=== PATIENT | male | born 1945 | race Caucasian/White ===

== ENCOUNTER 2017-06-15 12:08 | Observation (INO) | payer OTHER ==
[~2017-06-15] VITALS: Ht 182.9 cm; Wt 126.5 kg
[2017-06-15] MEDS ORDERED: LORADAMED10 MG PO (12:25)
[2017-06-15] MEDS ORDERED: LIPITOR80 MG PO (12:25)
[2017-06-15] MEDS ORDERED: ASPIR-LOW81 MG PO (12:25)
[2017-06-15] MEDS ORDERED: CLOBETASOL EMOL15 GM TOP (12:26)
[2017-06-15] MEDS ORDERED: PLAVIX75 MG PO (12:26)
[2017-06-15] MEDS ORDERED: VITAMIN D2000 UNIT PO (12:26)
[2017-06-15] MEDS ORDERED: GLIPIZIDE5 MG PO (12:27)
[2017-06-15] MEDS ORDERED: VITAMIN B-12500 MCG PO (12:27)
[2017-06-15] MEDS ORDERED: LANTUS100 UNITS/ SUB-Q (12:28)
[2017-06-15] MEDS ORDERED: COZAAR100 MG PO (12:28)
[2017-06-15] MEDS ORDERED: SYNTHROID100 MCG PO (12:28)
[2017-06-15] MEDS ORDERED: K-TAB ER20 MEQ PO (12:29)
[2017-06-15] MEDS ORDERED: TOPROL XL25 MG PO (12:29)
[2017-06-15] MEDS ORDERED: GLUCOPHAGE1000 MG PO (12:29)
[2017-06-15] MEDS ORDERED: ROPINIROLE HCL1 MG PO (12:30)
[2017-06-15] MEDS ORDERED: TORSEMIDE20 MG PO (12:31)
[2017-06-15] MEDS ORDERED: ONGLYZA5 MG PO (12:31)
[2017-06-15] MEDS ORDERED: TRAZODONE HCL50 MG PO (12:32)
[2017-06-15] MEDS ORDERED: NITROSTAT0.4 MG SL (12:32)
[2017-06-15] MEDS ORDERED: METOLAZONE5 MG PO (12:33)
[2017-06-15] MEDS ORDERED: LEVOFLOXACIN750 MG PO (12:33)
[2017-06-15] MEDS ORDERED: MUPIROCIN22 GM TOP (12:33)
--- NOTE | 2017-06-15 16:37 | NUR ---
patient to the floor from ed. lisandra rn in room to assist with admission. and daughter in room. blanca from pharmacy in room to assist with admission medications. dr. garces and dr. toledo to the floor to assess patient.
--- NOTE | 2017-06-15 16:55 | NUR ---
PT NEW ADMIT. HELPED NURSE CHECK HIM IN. FRESH ICE WATER. TOOK VITALS.
--- NOTE | 2017-06-15 17:29 | NUR ---
DR. ESCALANTE IN ROOM TO SEE PATIENT. DR. NGUYEN UPDATING ON NEW ORDERS. FAMILY IN ROOM.
--- NOTE | 2017-06-15 17:32 | NUR ---
Medications reconciled using pharmacy records, patient med list and patient interview. Daughter, Althea, familiar with medications as well.
--- NOTE | 2017-06-15 17:46 | NUR ---
NEW ORDERS FROM DR. ESCALANTE. OKAY TO EAT UNTIL MIDNIGHT. PATIENT ORDERED DINNER. ORDERED FLUID STARTED. PATIENT TOLERATING WELL.
--- NOTE | 2017-06-15 17:53 | NUR ---
PATIENT ED ADMIT THIS EVENING. DR. ESCALANTE AND DR. NGUYEN TO FOLLOW PATIENT. PATIENT WILL HAVE SURGERY TOMORROW MORNING AT 0900. NPO AT MIDNIGHT. SCDS. CELLULITIES ON LOWER LEGS. MARKED. ZOSYN IV. ADA DIET WHILE ABLE TO EAT.
--- NOTE | 2017-06-15 18:32 | NUR ---
PT AWAKE IN BED PT STATED DID NOT NEED ANYTHING
--- NOTE | 2017-06-15 19:05 | NUR ---
SHIFT REPORT RECIEVED. PATIENT RESTING IN BED. FAMILY LEAVING FOR THE NIGHT, DAUGHTER LEFT HER NUMBER AND STATES SHE WILL BE BACK IN THE MORNING. PATIENT DENIES NEEDS. CALL LIGHT IN REACH.
--- NOTE | 2017-06-15 20:10 | NUR ---
EVENING MEDS GIVEN PER ORDER. PATIENT COMFORTABLE, DENIES NAUSEA OR PAIN. LUNGS ARE CLEAR. BOWEL SOUND ACTIVE, ABD ROUND AND SLIGHTLY TENDER IN THE LLQ AND AT THE UMBILICUS. PATIENT IS AAOX3. ABLE TO AMBULATE WITHOUT ASSISTANCE. IVF INFUSING, SITE WNL. RIGHT IN IS RED AND TENDER, OUTLINE BY DAYSHIFT. REDNESS HAS NOT MIGRATED AT THIS TIME. PATIENT REFUSES SCDS AT THIS TIME. CALL LIGHT IN REACH. DENIES FURTHER NEEDS.
--- NOTE | 2017-06-15 22:00 | NUR ---
IV ABX ADMINISTERED PER ORDERS. PATIENT RESTING IN BED. DENIES PAIN OR NAUSEA. DISCUSSED THE PLAN FOR THE NIGHT CARE AND THE MORNING PRIOR TO SURGERY. PATIENT VERBILIZES UNDERSTANDING. ALL QUESTIONS ANSWERED. DENIES NEED TO USE THE BATHROOM AT THIS TIME, STATED THAT THE ENERGY SPECIALIST TOOK HIM NOT LONG AGO. CALL LIGHT IN REACH.
--- NOTE | 2017-06-15 22:54 | NUR ---
PATIENT REQUESTED TO BE MOVED INTO THE RECLINER. HE REGULARLY SLEEPS IN A RECLINER AT HOME AND IS UNABLE TO GET COMFORTABLE IN BED. NASIR OCTOBER ASSISTED PATIENT.
--- NOTE | 2017-06-16 00:25 | NUR ---
PATIENT IS UNCOMFORTABLE WITH SITTING IN THE RECLINER. PATIENT UP TO THE BATHROOM. NEWER RECLINER PLACED IN ROOM. PATIENT APPEARS STEADY ON HIS FEET. PATIENT ASSISTED BACK TO THE RECLINER AND STATED IT FELT MORE COMFORTABLE. PATIENT DENIES PAIN OR NAUSEA. IVF INFUSING, SITE WNL. CALL LIGHT IN REACH. PATIENT NPO AT THIS TIME. WATER CUPS REMOVED.
--- NOTE | 2017-06-16 04:00 | NUR ---
PATIENT BACK IN BED ATTEMPTING TO REST. HE HAS BEEN UNABLE TO GET COMFROTABLE TONIGHT DUE TO REGULARLY HAVING A NICE RECLINER TO SLEEP IN. BUT HE CONTINUES TO DENY ANY PAIN. THE HERNIA IS STILL PRESENT AT THE UMBILICUS WITHOUT CHANGES FROM ADMISSION. THE REDDNESS ON HIS RIGHT LEG HAS NOT MIGRATED PAST DRAWN LINE.
--- NOTE | 2017-06-16 05:32 | NUR ---
PATIENT RESTED ON AND OFF THROUGHOUT THE SHIFT. USES CALL LIGHT APPROPRIATELY. AAOX3. SBA. IVF INFUSING, SITE WNL. SURGERY PREP COMPLETED.
--- NOTE | 2017-06-16 05:33 | NUR ---
RECEIVED TELEPHONE ORDER TO PLACE PATIENT ON LR @75. VERIFIED ORDER USING THE READBAKC METHOD.
--- NOTE | 2017-06-16 06:07 | NUR ---
PRE SURGICAL WIPE DOWN DONE. PATIENT UP TO THE RECLINER. IVF INFUSING. LAB IN ROOM FOR MORNING LABS. PATIENT DENIES PAIN OR NAUSEA. MORNING MEDS GIVEN PER ORDER WITH SIP OF WATER.
--- NOTE | 2017-06-16 06:48 | NUR ---
ASSISTED PT UP TO BATHROOM. OFFERS NO COMPLAINTS.
--- NOTE | 2017-06-16 07:29 | CONS ---
[facility] [address], [place] [address] Signed DATE OF CONSULTATION: 06/15/2017 CHIEF COMPLAINT: Periumbilical pain and swelling. HISTORY OF PRESENT ILLNESS: Taisha is a 71-year-old obese, diabetic gentleman, who is having trouble with lower extremity edema and some chronic venous stasis disease with what looked like some cellulitis. He had been working with his primary care provider adjusting his antibiotics and his diuretics. Apparently, he was also working with his teacher aide clerical. Unfortunately, got little dehydrated, constipated, and then he had to take some Dulcolax and some magnesium citrate and he was pushing pretty hard and he felt the swelling at the umbilicus double in size. He was having some pain there, so he ended up going to his primary care provider. In the office, probably 2/3rds of that was reduced but the last 1/3rd could not be reduced and it seemed a little tender. His primary care provider had called me in the middle of the day after my office was closed. Consequently, we asked that he go straight to the emergency room. In the emergency room, his white count is normal. He is a little tender at the umbilicus, but there are no local signs or symptoms of infection. He did not seem to have signs of obstruction, but we went ahead and performed a CT scan of the abdomen and pelvis given his significant comorbidities and the decision was to whether or not to keep him at the hospital. As expected, he has some incarcerated omentum into his moderate-sized umbilical hernia. Given that, then we decided we could admit him to the hospital and start him on some IV antibiotics. In the meantime, he has been doing fine. PAST MEDICAL HISTORY: Umbilical hernia, hypertension, diabetes, COPD, brain aneurysm, and obesity. PAST SURGICAL HISTORY: Includes hemorrhoids and angiogram for a coil for his brain aneurysm, later followed by a craniotomy with clipping of the aneurysm and then cardiac stent. SOCIAL HISTORY: Smoked up to two packs a day, but quit in 1998. He does not drink. He is now . He has 3 children. He lives in a house over in [place] and continues to drive. He is a retired printing press operator apprentice. He prefers the [facility] in [place]. Dr. Gustavo Deleon is primary care provider. Dr. Tuckre is his teacher aide clerical in [place]. Phuong Nunez is his daughter at [phone] and [phone]. FAMILY HISTORY: Dad had some type of cancer, mom had Alzheimer's. REVIEW OF SYSTEMS: Taisha had 10 systems reviewed. He is very knowledgeable, very cooperative, really nothing new to add. Electronically Signed By: BELINDA ESCALANTE MD 06/16/17 0729 PATIENT NAME: TAISHA LINARES CONSULTATION DATE OF : 47 PHYSICIAN: BELINDA ESCALANTE MD REPORT #: [id number] REPORT IS CONFIDENTIAL AND NOT TO BE RELEASED WITHOUT AUTHORIZATION [address] [address] Signed ALLERGIES: None. MEDICATIONS: Bactroban ointment, levofloxacin, torsemide, metoprolol, metolazone, aspirin, clobetasol, atorvastatin, loratadine, vitamin D3, Plavix, vitamin B12, glipizide, Lantus, levothyroxine, losartan, potassium chloride, ropinirole, trazodone, saxagliptin, and nitroglycerin p.r.n. PHYSICAL EXAMINATION: VITAL SIGNS: Blood pressure is 132/81, his heart rate 72, respiratory rate 20, temperature is 98.0, he is 96% on room air. He is 6 feet tall and 126 kg. GENERAL: Taisha is a 71-year-old gentleman with his entire family in the room, including the daughter and his [id number]-[id number]-ruy and others. He does not appear systemically ill or toxic. He is very cooperative. LUNGS: His lungs are clear to auscultation bilaterally. HEART: Regular rate and rhythm. ABDOMEN: Obese, but soft and nontender. He certainly has an incarcerated umbilical hernia with chronically thinned and discolored skin over that area. No local signs or symptoms of infection I can see currently. LABORATORY DATA: His white blood count 7.8, hemoglobin 10, neutrophils 78. Potassium 3.3, CO2 34, BUN 27, creatinine 1.26, glucose 190. His urinalysis negative. Calcium 10.3. Liver function tests negative. Lipase 54. RADIOGRAPHIC STUDIES: CT scan of abdomen and pelvis is reviewed and sure enough he has an umbilical hernia with some incarcerated omentum. ASSESSMENT AND PLAN: Taisha is a 71-year-old gentleman, who presents with his incarcerated umbilical hernia and probably some chronic cellulitis with chronic venous stasis disease in his lower extremities, the right is little worse than the left. He has been on Levaquin recently. We are going to go ahead and switch him over to IV Zosyn for now. I think he is more than safe to go through the night for some IV hydration and correction of his potassium, and we will plan on doing surgery tomorrow morning, I think he will be fine, given the umbilical hernia the Plavix and aspirin should not really bother us. I did describe with Taisha and his family the nature of an umbilical hernia. We reviewed primary suture repair versus a mesh repair. We also reviewed the expected intraop and postop course. They understand there is risk including but not limited to bleeding, infection, scarring, change in contour of the skin, damage to bowel, infection of mesh requiring removal, recurrent hernias and chronic pain. They have expressed understanding and wished to proceed. In the meantime, we will have our Internal Medicine Service see him as well. Electronically Signed By: BELINDA ESCALANTE MD 06/16/17 0729 PATIENT NAME: TAISHA LINARES CONSULTATION DATE OF : 47 PHYSICIAN: BELINDA ESCALANTE MD REPORT #: [id number] REPORT IS CONFIDENTIAL AND NOT TO BE RELEASED WITHOUT AUTHORIZATION [address] [address] Signed MD MARGE uMnson/LELA /[id number] cc: MD Gustavo Munson MD Electronically Signed By: BELINDA ESCALANTE MD 06/16/17 0729 PATIENT NAME: TAISHA LINARES CONSULTATION DATE OF : 47 PHYSICIAN: BELINDA ESCALANTE MD REPORT #: [id number] REPORT IS CONFIDENTIAL AND NOT TO BE RELEASED WITHOUT AUTHORIZATION
--- NOTE | 2017-06-16 07:31 | NUR ---
RECIEVED BEDSIDE REPORT FROM GUILHERME MCFARLAND. PT AWAKE IN CHAIR. PT STATES HE IS COMFORTABLE AT THIS TIME.
--- NOTE | 2017-06-16 08:29 | EKG ---
[facility] [address] [facility] [place] [address] Signed Atrial fibrillation with premature ventricular or aberrantly conducted complexes Abnormal ECG No previous ECGs available Confirmed by WILLIAM NGUYEN MD ([id number]) on 06/16/2017 8:28:46 AM Electronically Signed By: WILLIAM NGUYEN MD 06/16/17 0829 PATIENT NAME: TAISHA LINARES Electrocardiogram DATE OF : 47 PHYSICIAN: WILLIAM NGUYEN MD REPORT #: [id number] REPORT IS CONFIDENTIAL AND NOT TO BE RELEASED WITHOUT AUTHORIZATION
--- NOTE | 2017-06-16 08:32 | NUR ---
SPOKE WITH ANESTHESIA PROVIDER, ADVISED TO HOLD POTASSIUM UNTIL AFTER SURGERY. ABX NOT FINISHED.
--- NOTE | 2017-06-16 08:49 | NUR ---
PTOFF THE FLOOR FOR SURGERY.
--- NOTE | 2017-06-16 10:31 | NUR ---
06/16/17 1031 Ashli More 0948 PT ARRIVED TO PACU, RESP EVEN AND UNLABORED. PT RESPONDING TO STUMULI. 0950 PT COUGHED UP SMALL AMOUNT OF GREEN SPUTUM 0956 PT O2 100%, O2 MASK REMOVED. 0959 O2 DECREASED TO 90%, NC PLACED AT 6L PLACED. 1001 PT REPORTING PAIN 04/03, MEDICAITON GIVEN PER EMAR. 1006 O2 REDUCED TO 4L 1020 PT REPORTING NAUSEA, MEDICAITON GIVEN PER EMAR. 1027 O2 REDUCED TO 2L
--- NOTE | 2017-06-16 11:14 | NUR ---
PT ARRIVED BACK FROM SURGERY AT 1105. PT IS AWAKE AND ALERT, SLIGHTLY DROWSY. NAUSEA IS CONTROLLED AT THIS TIME. PT REPORTS NO PAIN. DRESSING C/D/I. PULSES INTACT. PACU REPORTS IV FLUSHES WELL, BUT IS GETTING DIFFICULT.
--- NOTE | 2017-06-16 14:51 | NUR ---
TOOK BLOOD SUGAR CHECK. NOW GETTING HIS DINNER ORDERED.
--- NOTE | 2017-06-16 18:17 | NUR ---
PT TO SURGERY THIS AM, HERNIA REPAIR WITHOUT MESH. PT TOLERATED PROCEDURE WELL. ICE TO ABD PRN PAIN X24 HRS. DRESSING C/D/I. SCD TO LLE ONLY TOLERATED. REDNESS AND WARMTH TO LOWER LEGS, RECEDING FROM OUTLINES. PT UP TO CHAIR FOR MEALS, RESTING IN BED MOST OF DAY. D5 AT 100ML/HR. POTASSIUM RIDER THIS SHIFT, EXTENDED INFUSION ABX THIS SHIFT. PRN PAIN MEDS X2.
--- NOTE | 2017-06-16 19:10 | NUR ---
SHIFT REPORT RECIEVED. PATIENT RESTING IN RECLINER. REPORTS GOOD PAIN CONTROL AT THIS TIME. CALL LIGHT IN REACH.
--- NOTE | 2017-06-16 19:43 | NUR ---
ROUNDED CHARGE. PATIENT IS RESTING IN RECLINER. PATIENT DENIES ANY PAIN OR NAUSEA AT THIS TIME. NO COMMENTS QUESTIONS OR CONCERNS. CALL LIGHT IN REACH.
--- NOTE | 2017-06-16 20:56 | NUR ---
EVENING MEDS GIVEN. PATIENT RESTING IN BED. AAOX3. REPORTS PAIN AT 5/10 IN ABD, ICE PACK APPLIED. PATIENT DENIES NEED FOR PAIN MED AT THIS TIME. LUNGS CLEAR. ABD IS ROUND, AND TENDER NEAR INCISION SITE. DRESSING C/D/I. SCD ON LEFT LEG. REDNESS ON RIGHT LEG, APPEARS IMPROVED FROM PREVIOUS SHIFT. REDNESS HAS RECEDED FROM LINE DRAWN ON ADMISSION. IVF INFUSING, SITE WNL. PATIENT THINKS HE HAS PASSED A SMALL AMOUNT OF GAS BUT IS UNSURE. PULSE OX IN PLACE, 97% ON RA.
--- NOTE | 2017-06-16 22:45 | NUR ---
PATIENT REPORTED 7/10 PAIN AFTER GETTING UP TO THE BATHROOM AND THEN RESTING IN BED FOR A FEW MINS. PATIENT HAS ICE PACK IN PLACE. PRN ORAL PAIN MEDS GIVEN. O2 SAT 90% ON RA WHILE SLEEPING. PATIENT REQUESTED O2 VIA NC. 1L NC PLACED FOR PATIENT COMFORT. CALL LIGHT IN REACH.
--- NOTE | 2017-06-17 00:39 | NUR ---
PATIENT RESTING IN BED. PULSE OX 98% ON 1L NC. PATIENT EYES CLOSED. BREATHING NONLABORED. HOB ELEVATED. CALL LIGHT IN REACH.
--- NOTE | 2017-06-17 01:05 | NUR ---
PATIENT REPORTS PAIN IS 5/10. PRN PAIN MEDS GIVEN PER ORDER. PATIENT RESTING IN RECLINER. 1L NC ON FOR COMFORT, PULSE OX 02 96%. CALL LIGHT IN REACH.
--- NOTE | 2017-06-17 02:44 | NUR ---
PATIENT REPORTS GOOD PAIN CONTROL BUT IS UNABLE TO SLEEP MUCH. PATIENT HAS TRIED TO SLEEP IN THE RECLINER AND THE BED. UNABLE TO FIND A COMFORTABLE POSITION. PATIENT DENIES ANY NEEDS. READJUSTED PILLOWS IN RECLINER. CALL LIGHT IN REACH.
--- NOTE | 2017-06-17 05:00 | NUR ---
GUILHERME TAYLOR ASSISTED PATIENT TO THE BATHROOM. PATIENT BACK IN BED. CALL LIGHT IN REACH.
--- NOTE | 2017-06-17 05:38 | NUR ---
PATIENT RESTED ON AND OFF THROUGHOUT THE NIGHT, MOVING BETWEEN THE BED AND THE RECLINER. PAIN WELL CONTROLLED WITH ICE PACK AND ORAL PRN PAIN MEDS X2. SBA TO THE BATHROOM. DRESSING C/D/I. DUE TO BE REMOVED THIS AM. REDNESS ON RIGHT LEG IMPROVED FROM PREVIOUS NIGHT. SCD ON LEFT LEG. IVF INFUSING, SITE WNL. PULSE OX IN PLACE. 1L NC WHILE SLEEPING PER PATIENT REQUEST. PATIENT AAOX3.
--- NOTE | 2017-06-17 06:13 | NUR ---
PATIENT RESTING IN BED. STATES HE FEELS LIKE HE MIGHT NEED TO HAVE A BOWEL MOVEMENT SOON. OFFERED PATIENT TO AMBULATE IN THE HALLWAY. HE WOULD LIKE TO DO THAT THIS MORNING BUT WOULD LIKE TO REST A LITTLE MORE RIGHT NOW. HE WILL LET RN KNOW WHEN HE IS READY TO AMBULATE.
--- NOTE | 2017-06-17 07:45 | NUR ---
BEDSIDE REPORT RECEIVED FROM BRUNA. PATIENT WAS UP TO BATHROOM. ASSISTED BACK TO THE CHAIR. IV SITE PATENT AND FLUID INFUSING UMBILICAL DRESSING DRY/INTACT. PATIENT REPORT INTERMITTENT PAIN AT INCISION SITE.
--- NOTE | 2017-06-17 09:40 | NUR ---
PATIENT SITTING IN THE CHAIR, REPORTS 4/10 AT THE INCISION SITE. PATIENT WAS MEDICATED. SHIFT ASSESSMENT DONE. MORNING MEDS ADMINISTERED. RESTING IN THE CHAIR AT THIS TIME. NO APPARENT DISTRESS NOTED.
--- NOTE | 2017-06-17 10:06 | NUR ---
DR ESCALANTE IN ROOM TO RE-EVALUATE PATIENT. DISCUSSING PLAN OF CARE WITH PATIENT AND FAMILY.
[2017-06-17] MEDS ORDERED: NORCO 5-325 TA1 EACH PO (10:32)
[2017-06-17] MEDS ORDERED: MIRALAX17 GM PO (10:32)
[2017-06-17] MEDS ORDERED: BENEFIBER1 EAC2 PO (10:32)
--- NOTE | 2017-06-19 08:26 | DS ---
[facility] [address] [place], [place] [address] Signed ADMISSION DATE: 06/15/2017 DISCHARGE DATE: 06/17/2017 FINAL DIAGNOSIS: Strangulated umbilical hernia. PROCEDURES: 1. Primary umbilical hernia repair without mesh. 2. CT scan of abdomen and pelvis. HISTORY OF PRESENT ILLNESS: Taisha is a 71-year-old, debilitated gentleman, who was using some diuretics to try to get some edema off his legs and also some antibiotics for some cellulitis in his right leg. Unfortunately, he got little dehydrated and constipated and then he started to push at the toilet. He doubled the size of his umbilical hernia and it was quite painful. He ended up at his primary care provider's office and then went over to the emergency room as well. White count was normal, but the CT scan showed his herniated fat and it was not reducible. It was tender in that area as well. Therefore, I was asked to admit him as a general surgeon on-call. HOSPITAL COURSE: I met with Taisha that evening and his family. He did not have any local signs or symptoms of infection. We knew this was going to be incarcerated fat based on exam and his CT scan. We kept him overnight, put him on Zosyn and we had our Internal Medicine Service see him to help review and optimize his medical conditions. Also, he was dehydrated and need some IV fluids before any anesthetic. We took him to the operating room then the next day and he did quite well. We found his herniated fat, which we excised and passed off the field. The bowel underneath was fine. However, he had dmwpb-nr-[id number] changes with some areas of hemorrhage from trying to reduce the hernia, but also he had lot of induration to the surrounding fat not noted on the outside of the muscle, but on the preperitoneal fat as well. Plus, he has a source of infection in his leg, so we decided to withhold any mesh at this time and was closed primarily with [id number] Prolene sutures. After surgery, he did fine, but he was little dizzy and unsteady on his feet, so we kept him overnight. This morning, he is feeling much better. He still low distended from his constipation, but overall, he is doing fine and he has good support from his family. Given his progress, I am going to allow him to be discharged to home. DISCHARGE PLANS AND MEDICATIONS: Taisha is going to be discharged to home with a prescription for [facility] 5/325, 1 to 2 tablets p.o. q.4 to 6 hours p.r.n. pain. We will dispense 50 tablets with no refills. He will resume his chronic medications including his Levaquin. He has 5 or 6 days of Levaquin remaining for his leg. However, we will hold the aspirin and Plavix for 5 days. Electronically Signed By: BELINDA MAN MD 06/19/17 0826 PATIENT NAME: TAISHA LINARES DISCHARGE SUMMARY DATE OF : 47 PHYSICIAN: BELINDA AMN MD REPORT #: [id number] REPORT IS CONFIDENTIAL AND NOT TO BE RELEASED WITHOUT AUTHORIZATION [address] [address] Signed I also wrote down MiraLAX 17 g p.o. b.i.d. and 8 to 12 ounces of liquid, which he can purchase [id number] and he needs take that at least for the next week or so until his intestine settled down and he can also use Benefiber 1 tablespoon p.o. b.i.d. and 8 to 12 ounce liquid [id number] as well. We are going to leave this dressing open to air and he can shower and bathe as usual. He can walk up and down stairs, and perform his activities of daily living. He should not lift over 20 pounds. We will have him back in the office in a week or so for followup. He and his family have expressed understanding and agreed to above plan. Belinda Man MD ALB/MODL /[id number] cc: Dr. Poli Deleon MD Electronically Signed By: BELINDA MAN MD 06/19/17 0826 PATIENT NAME: TAISHA LINARES DISCHARGE SUMMARY DATE OF : 47 PHYSICIAN: BELINDA MAN MD REPORT #: [id number] REPORT IS CONFIDENTIAL AND NOT TO BE RELEASED WITHOUT AUTHORIZATION
--- NOTE | 2017-06-21 05:38 | OR ---
[facility] [address], [place] [address] Signed DATE OF OPERATION: 06/16/2017 SURGEON: Belinda Escalante MD PREOPERATIVE DIAGNOSIS: Incarcerated umbilical hernia (2 cm). POSTOPERATIVE DIAGNOSIS: Strangulated umbilical hernia (2 cm). PROCEDURE: Primary umbilical herniorrhaphy without mesh. ESTIMATED BLOOD LOSS: None. INDICATIONS: Taisha is a 71-year-old, obese, diabetic gentleman, who also has anemia as well as COPD and chronic bilateral lower extremity venous stasis disease with what looks like chronic cellulitis in his right leg. He had been taking some extra diuretics to try to diurese off some of the fluid from his legs and ended up dehydrated and constipated. He found himself pushing much harder at the toilet than usual. He said the umbilical hernia that he has had for several years doubled in size. It was painful, so he ended up going to his primary care provider. About 1/2 to 2/3 of that hernia was reduced, but a portion of it could not be reduced. It was batch still operator and so he was sent directly over to the emergency room for evaluation. In the emergency room, his white count was normal and CT scan showed some incarcerated fat in the hernia with some inflammatory changes around it suggesting it could be strangulated as well. Consequently, he was admitted to me as a general surgeon on-call. We switched him from his outpatient Levaquin over to some Zosyn IV here in the hospital. I did have our medical service see him as well. I met with Taisha and his family here in the hospital. I explained to Taisha, I thought we had plenty of time to hydrate him and settle out his medical issues and we will do a surgery first thing in the morning. I explained to Taisha and his family the nature of an umbilical hernia as well as the difference between a primary suture repair and a mesh repair. We also reviewed the expected intraop and postop course. There is risk of surgery including, but not limited to bleeding, infection, scarring, change in contour of the skin as well as infection of the mesh requiring removal, recurrent hernias and chronic pain. In addition, we have to have him off his aspirin and Plavix for a few days and that places him at some increased risk given his cardiac stent and a previous brain aneurysm. He and his family had expressed understanding and wished to proceed. PROCEDURE NOTE: Taisha was brought down to our operating room where we placed him in a supine position under general anesthesia. He was on Plavix and aspirin, so we withheld his heparin. Electronically Signed By: BELINDA ESCALANTE MD 06/21/17 0538 PATIENT NAME: TAISHA LINARES OPERATIVE REPORT DATE OF : 47 PHYSICIAN: BELINDA ESCALANTE MD REPORT #: [id number] REPORT IS CONFIDENTIAL AND NOT TO BE RELEASED WITHOUT AUTHORIZATION [address] [address] Signed There was enough skin changes to his right leg, that we did not place an SCD on the right leg. We went ahead and placed one on the left. We did not use a Shah catheter today. He was then prepped and draped in the usual sterile fashion. Of course, he was on his preoperative Zosyn. Even after pharmacologic paralysis, we could not reduce his hernia. We went ahead and made a standard transverse infraumbilical incision and carried it down through the tissues bluntly with the cautery. We found the tissue to be very indurated and very edematous. I had to open the inferior portion of the hernia sac from the fascia up to the level of the umbilicus and then divided from the fascial edge with the help of a cautery. He had a large ball of fat incarcerated in the hernia sac, 3/4 the size of a golf ball. There was significant induration to that hernia sac, and inside the hernia sac, he had multiple areas of hemorrhage and inflammatory changes. The entire ball of fat simply rotated out of the fascial defect and underneath was a piece of small intestine. There was no damage or concern with the small intestine whatsoever. After this, we elevated the edges of the hernia throughout the fascial defect with our Bill clamps, and even underneath, he had circumferential inflammation and induration to the preperitoneal fat. However, there was no adhesion within the intestine or omentum to the area. Given those local findings plus the chronic cellulitis in his right lower extremity, we did not feel it was valverde to place a piece of mesh at this time. As always, the concern it would become infected. We went ahead and brought his fascial defect back together transversely with interrupted #1 [id number] Prolene sutures. We also used several simple #1 Prolene sutures in between to reapproximate the fascial edges. After this, local anesthetic was injected in the abdominal wound. The wound was irrigated and suctioned out until clear. We had gone through the wound several times to make sure all hemostasis was excellent with our cautery. The indurated fat was brought together back to the midline with several simple interrupted 3-0 Monocryl sutures along with our umbilical skin. The dermis was then reapproximated with interrupted 3-0 subcuticular Monocryl sutures. After this, dry gauze and tape was applied. Taisha was awakened from his anesthesia, extubated in the OR, and taken to recovery room in stable condition. Belinda Escalante MD ALB/MODL /[id number] Electronically Signed By: BELINDA ESCALANTE MD 06/21/17 0538 PATIENT NAME: TAISHA LINARES OPERATIVE REPORT DATE OF : 47 PHYSICIAN: BELINDA ESCALANTE MD REPORT #: [id number] REPORT IS CONFIDENTIAL AND NOT TO BE RELEASED WITHOUT AUTHORIZATION [address] [address] Signed cc: MD Clau Jimenez MD Electronically Signed By: BELINDA ESCALANTE MD 06/21/17 0538 PATIENT NAME: TAISHA LINARES OPERATIVE REPORT DATE OF : 47 PHYSICIAN: BELINDA ESCALANTE MD REPORT #: [id number] REPORT IS CONFIDENTIAL AND NOT TO BE RELEASED WITHOUT AUTHORIZATION
== END 2017-06-17 11:45 | disposition home or self-care (01) ==
LOC: ED 12:08 → MS 12:10 → ED 15:53 → MS 15:53
PROVIDERS: ADMIT Colon & Rectal Surgery
PROC: 0WQF0ZZ Repair Abdominal Wall, Open Approach (ICD-10-PCS; principal; 2017-06-16 09:00)
DX: K42.0 Umbilical hernia with obstruction, without gangrene (principal); J44.9 Chronic obstructive pulmonary disease, unspecified; R60.0 Localized edema; I87.8 Other specified disorders of veins; R53.81 Other malaise; L03.115 Cellulitis of right lower limb; D64.9 Anemia, unspecified; E86.0 Dehydration; K59.00 Constipation, unspecified; R42 Dizziness and giddiness; I12.9 Hypertensive chronic kidney disease with stage 1 through stage 4 chronic kidney disease, or unspecified chronic kidney disease; E11.22 Type 2 diabetes mellitus with diabetic chronic kidney disease; N18.9 Chronic kidney disease, unspecified; G47.30 Sleep apnea, unspecified; R26.81 Unsteadiness on feet; E66.01 Morbid (severe) obesity due to excess calories; E87.6 Hypokalemia; Z79.02 Long term (current) use of antithrombotics/antiplatelets; Z79.82 Long term (current) use of aspirin; Z57.39 Occupational exposure to other air contaminants; Z79.4 Long term (current) use of insulin; Z79.899 Other long term (current) drug therapy; Z68.37 Body mass index [BMI] 37.0-37.9, adult; Z87.891 Personal history of nicotine dependence; Z95.5 Presence of coronary angioplasty implant and graft
CPT/HCPCS: 00750; 36415; 74177; 80048; 80053; 81001; 83605; 83690; 83735; 84100; 85025; 93005; 93010; 94640; 94762; 96366; 96367; 96374; 96375; 96376; 99285; G0378; J1170; J2405; J2543; J2704; J3010; J3480; J7060; J7120; Q9967

== ENCOUNTER 2017-11-29 16:01 | Inpatient (IN) | payer MEDICARE, OTHER ==
[~2017-11-29] VITALS: Ht 190.5 cm; Wt 134.3 kg
[~2017-11-29 16:01] MED LIST: ASPIR-LOW81 MG PO; BENEFIBER1 EAC2 PO; CLOBETASOL EMOL15 GM TOP; COZAAR100 MG PO; GLIPIZIDE5 MG PO; GLUCOPHAGE1000 MG PO; K-TAB ER20 MEQ PO; LANTUS100 UNITS/ SUB-Q; LEVOFLOXACIN750 MG PO; LIPITOR80 MG PO; LORADAMED10 MG PO; METOLAZONE5 MG PO; MIRALAX17 GM PO; MUPIROCIN22 GM TOP; NITROSTAT0.4 MG SL; NORCO 5-325 TA1 EACH PO; ONGLYZA5 MG PO; PLAVIX75 MG PO; ROPINIROLE HCL1 MG PO; SYNTHROID100 MCG PO; TOPROL XL25 MG PO; TORSEMIDE20 MG PO; TRAZODONE HCL50 MG PO; VITAMIN B-121000 MCG PO; VITAMIN D2000 UNIT PO
[2017-11-29] MEDS ORDERED: ASPIR 8181 MG PO (16:29)
[2017-11-29] MEDS ORDERED: MUCINEX600 MG PO (16:35)
--- NOTE | 2017-11-29 20:32 | EKG ---
[facility] [address] [facility] [place] [address] Signed Atrial fibrillation with premature ventricular or aberrantly conducted complexes Rightward axis Low voltage QRS Abnormal ECG No previous ECGs available Confirmed by WILLIAM NGUYEN MD ([id number]) on 11/29/2017 8:32:13 PM Electronically Signed By: WILLIAM NGUYEN MD 11/29/172031 PATIENT NAME: MILAGROSTAISHA BADILLO Electrocardiogram DATE OF : 47 PHYSICIAN: WILLIAM NGUYEN MD REPORT #: [id number] REPORT IS CONFIDENTIAL AND NOT TO BE RELEASED WITHOUT AUTHORIZATION
--- NOTE | 2017-11-29 21:03 | NUR ---
PLACED CALL TO MD PER PATIENTS REQUEST. NEW VERBAL ORDER RECEIVED. VERIFIED VERBAL ORDER USING THE READBACK METHOD.
--- NOTE | 2017-11-29 21:57 | NUR ---
PATIENT ASSESMENT COMPLETED. PATIENT DENIES ANY PAIN. PATIENTS EVENING MEDICATIONS GIVEN PER ORDER. PATIENTS BILAT LOWER LEGS HAVE EDEMA. PATIENTS ABD IS FIRM AND PATIENTS STATES THAT IT IS NOT NORMAL. PATIENTS PEDAL PULSES NOT EASY TO PALPATE. DOPPLER USED AND CASTLE MADE ON FEET FOR PULSES. PATIENT IS ON RA. BREATHING IS SHALLOW. PATIENT IS ON TELE #3, HR 83, IRREGULAR RHYTHM AND IRREGULAR HEART SOUNDS. PATIENT IS SL AND IV FLUSHES WELL. PATIENT EDUCATED ON THE USE OF THE CALL LIGHT. NO FURTHER NEEDS NOTED. CALL LIGHT IN REACH.
--- NOTE | 2017-11-29 22:46 | NUR ---
PATIENT ASSISTED TO STAND AT THE BEDSIDE. PATIENT IS STEADY ON HIS FEET. PATIENT WAS ABLE TO VOID. PATIENT IS BACK IN BED RESTING. PATIENT DENIES ANY FURTHER NEEDS CALL LIGHT IN REACH.
--- NOTE | 2017-11-30 01:04 | NUR ---
PATIENT COMPLAINS OF DISCOMFORT. PATIENT GIVEN PRN TYLENOL PER REQUEST. PATIENT REPOSITIONED IN BED. NO FURTHER NEEDS NOTED. CALL LIGHT IN REACH.
--- NOTE | 2017-11-30 01:31 | NUR ---
PATIENT ASSISTED TO THE RESTROOM A SBA. PATIENT WAS ABLE TO VOID. PATIENT IS BACK IN BED RESTING. PATIENT DENIES ANY FURTHER NEEDS AT THIS TIME. CALL LIGHT IN REACH.
--- NOTE | 2017-11-30 03:50 | NUR ---
PATIENT IS RESTING IN BED WITH EYES CLOSED. RR 17. CALL LIGHT IN REACH.
--- NOTE | 2017-11-30 05:08 | NUR ---
PATIENT STRUGGLED TO REST SINCE ARRIVING TO THE FLOOR. PATEINT IS ON AN ADA DIET. PATIENT ATE A LUNCH BOX UPON ARRIVING TO THE FLOOR. NO NAUSEA NOTED. PATIENT IS ON RA. PATIENT IS SL AND IV FLUSHES WELL. PATIEN IS ON TELE #3, IRREGULAR RHYTHM, HR IN THE 80'S. PATIENT IS A SBA. PATIENT HAS EDEMA TO BILAT LOWER EXT. PATIENT IS AAOX3 AND USES CALL LIGHT APPROPRIATELY.
--- NOTE | 2017-11-30 05:11 | NUR ---
PATIENT REPOSITIONED IN BED. RECORDS SECTION SUPERVISOR IN THE ROOM TO TAKE VITALS AND ASSISTED PATIENT TO THE RESTROOM. PATIENT DENIES ANY PAIN AT THIS TIME. NO NEEDS NOTED. CALL LIGHT IN REACH.
--- NOTE | 2017-11-30 07:46 | NUR ---
BEDSIDE REPORT RECEIVED FROM CAROLYN VANEGAS. PATIENT SITTING UP IN BED AND THEN TRANSITIONED TO SITTING AT EDGE OF BED. STUDENT NURSE GETTING FSBS NOW. DAUGHTER AT BEDSIDE. PATIENT IN GOOD SPIRITS. WHITE BOARD UPDATED.
--- NOTE | 2017-11-30 08:05 | NUR ---
STUDENT NURSE IN ROOM.
--- NOTE | 2017-11-30 09:49 | NUR ---
PATIENT SITTING ON SIDE OF BED. RN IN ROOM. FAMILY MEMBER IN ROOM. STUDENT NURSE AND INSTRUCTOR IN ROOM.
[2017-11-30] MEDS ORDERED: TYLENOL EXTRA500 MG PO (11:20)
[2017-11-30] MEDS ORDERED: CALCIUM500 MG PO (11:22)
[2017-11-30] MEDS ORDERED: COLACE100 MG PO (11:25)
[2017-11-30] MEDS ORDERED: FLAX SEED OIL1000 MG PO (11:29)
[2017-11-30] MEDS ORDERED: FLONASE ALLERG9.9 ML NAS (11:31)
[2017-11-30] MEDS ORDERED: FOLIC ACID1 MG PO (11:32)
[2017-11-30] MEDS ORDERED: LOSARTAN-HCTZ1 EAC1 PO (11:34)
--- NOTE | 2017-11-30 11:40 | NUR ---
STUDENT NURSE IN ROOM.
[2017-11-30] MEDS ORDERED: VITAMIN B-650 MG PO (11:44)
[2017-11-30] MEDS ORDERED: XARELTO10 MG PO (11:46)
[2017-11-30] MEDS ORDERED: TRAZODONE HCL100 MG PO (11:48)
[2017-11-30] MEDS ORDERED: DEMADEX10 MG PO (11:48)
--- NOTE | 2017-11-30 14:13 | NUR ---
PATIENT SITTING UP IN BED. PHARMACY IN ROOM WELL STUDENT NURSE. CALL LIGHT WITHIN REACH. NO OTHER NEEDS AT THIS TIME.
--- NOTE | 2017-11-30 16:16 | NUR ---
THIS ASBESTOS REMOVER ASSISTED PATIENT UP TO BATHROOM, BACK TO BEDSIDE RECLINER. SKINCARE PERFORMED ON PATIENT'S LEGS AT PATIENT'S REQUEST AND RN'S APPROVAL. LINENS STRAIGHTENED AND ADJUSTED, CALL LIGHT IN REACH, PATIENT'S LEGS ELEVATED. FRESH ICE WATER AT BEDSIDE TABLE. NO OTHER NEEDS AT THIS TIME.
--- NOTE | 2017-11-30 16:50 | NUR ---
SBA TO BATHROOM. ABDOMINAL DISTENTION IMPROVED. BILAT LE EDEMA IMPROVING. RIGHT LACEY SCABBING D/T FALL IN OCTOBER. SENNA AND MIRALAX-- SEVERAL DAYS SINCE LAST BM. VANCO FOR PROBABLY CELLULITIS. ADA 2GM SODIUM DIET, 1600ML FLUID RESTRICTION. SALINE LOCKED. OCCUPATIONAL THERAPY WORKING WITH PATIENT. TELE 3 (IRREGULAR RHYTHM). DOPPLER FOR PEDAL PULSES.
--- NOTE | 2017-11-30 17:25 | NUR ---
ASSUMING PATIENT'S CARE AT THIS TIME. PATIENT RESTING IN THE CHAIR, DAUGHTER IN ROOM. PATIENT DENIES PAIN AT THIS TIME. INSULIN ADMINISTERED PER S/S WITH SECOND CHECK. EATING DINNER AT THIS TIME.
--- NOTE | 2017-11-30 18:17 | NUR ---
PATIENT RESTING IN BEDSIDE RECLINER, RN IN ROOM. CALL LIGHT IN REACH. NO OTHER NEEDS AT THIS TIME.
--- NOTE | 2017-11-30 19:15 | NUR ---
SHIFT REPORT RECEIVED. PATIENT RESTING IN BED WATCHING TV. APPEARS COMFORTABLE. NO NEEDS AT THIS TIME. CALL LIGHT IN REACH.
--- NOTE | 2017-11-30 21:30 | NUR ---
EVENING MEDS GIVEN PER ORDER. PATIENT IN RECLINER. HE DENIES ANY PAIN AT REST, LOWER LEGS ARE PAINFUL WITH TOUCH. LUNGS ARE CLEAR IN UPPER LOBES, COARSE IN THE BASES. ABD IS LARGE, ROUND, SEMI-SOFT, TENDER, BOWEL SOUNDS ACTIVE. EDEMA 2-3+ IN KAILASH LOWER EXTREMITIES. REDNESS AND SCABS PRESENT ON BOTH LOWER EXTREMITIES, MORE ON THE RIGHT. WOUNDS ARE WEEPING YELLOW DRAINAGE. PATIENT REPORTS TINGLING AND SHOOTING PAINS IN LEGS THAT IS CHRONIC DUE TO NEUROPATHY. CMS INTACT. PATIENT IS GOING TO GET READY FOR BED WITH HELP FROM GEAR TECHNICIAN AND THEN WOUND CARE WILL BE DONE.
--- NOTE | 2017-11-30 22:30 | NUR ---
PATIENT BACK IN BED. LOWER EXTREMITIES WASHED WITH SOAP AND WATER. PATIENT TOLERATED WELL. SKIN DRIED AND LOTION APPLIED. PATIENT REPORTS MINIMAL PAIN WITH THIS AND STATES THE LOTION FEELS GOOD. HE IS READY FOR BED NOW. CALL LIGHT IN REACH. LIGHTS TURNED OFF. NO OTHER NEEDS.
--- NOTE | 2017-11-30 22:42 | NUR ---
HELPED PT TO THE BATHROOM AND BACK TO BED WITH HIS FWW. HELPED GET HIM ADJUSTED WITH PILLOWS. BEDSIDE TABLE AND CALL LIGHT WITHIN REACH. FRESH WATER GIVEN.
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
--- NOTE | 2017-12-01 00:05 | NUR ---
IV ABX STARTED. PATIENT IN CHAIR. LEGS ELEVATED. NO OTHER NEEDS AT THIS TIME.
--- NOTE | 2017-12-01 01:14 | NUR ---
PATIENT IS SLEEPING OFF AND ON BUT IV BECOMES OCCULDED FREQUENTLY DUE TO PLACEMENT IN THE AC. PLACED BP CUFF AROUND PATIENT'S ELBOW TO REDUCE THE FREQUENCY OF HIM BENDING IT WHILE SLEEPING. THIS SEEMS TO BE EFFECTIVE FOR NOW.
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
--- NOTE | 2017-12-01 02:30 | NUR ---
PATIENT CALLED TO TALK TO HIS NURSE. PATIENT STATED "I NEED HELP GETTING UNCONFUSED." WHEN ASKED WHAT HE MEANT THE PATIENT STATED HE KEPT WAKING UP CONFUSED AND NOW HE IS WANTING TO GET OUT OF THE RECLINER. ASSISTED PATIENT UP TO THE BATHROOM. THEN PATIENT AMBULATED IN THE HALLWAY. HE MADE ONE LARGE LAP AROUND THE UNIT. PATIENT RETURNED TO THE RECLINER AND IS GOING TO TRY TO SLEEP SOME MORE. CHAIR ALARM ON. LEGS ELEVATED. CALL LIGHT IN REACH.
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
--- NOTE | 2017-12-01 05:15 | NUR ---
VITALS, I&OS AND DAILY WEIGHT DONE AND CHARTED. BEDSIDE TABLE AND CALL LIGHT WITHIN REACH. PT NEEDS NOTHING ELSE AT THIS TIME. CHAIR ALARM PUT ON HIM.
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
--- NOTE | 2017-12-01 08:06 | NUR ---
DID PATIENT'S BLOOD SUGAR. RIGHT NOW HE IS UP IN HIS CHAIR EATING HIS BREAKFAST.
--- NOTE | 2017-12-01 08:30 | NUR ---
PATIENT UP IN THE RECLINER, FEET ELEVATED, AND EATING BREAKFAST. PATIENT EXPRESSES NO CONCERNS ATTHIS TIME. AM ASSESSMENT COMPLETE.
--- NOTE | 2017-12-01 10:30 | NUR ---
PATIENT HAVING THE BACK OF HIS LEGS TAPED BY OT TO HELP FLUID RETURN TO THE LYMPH NODES IN HIS LOWER LEGS AND DECREASE SWELLING.
--- NOTE | 2017-12-01 11:07 | NUR ---
PATIENT HAD TO SET UP AT BEDSIDE TO BLOW HIS NOSE. PT DOES NOT HAVE ENOUGH ENERGY TO BLOW HIS NOSE WHILE SITTING DOWN. PATIENT REPOSITIONED TO COMFORT AND BACK IN BED NOW. FAMILY AT BEDSIDE.
--- NOTE | 2017-12-01 12:14 | NUR ---
TOOK PATIENT'S TELE OFF AROUND 10:40 THIS MORNING. ALSO DID HIS BLOOD SUGAR CHECK.
--- NOTE | 2017-12-01 14:11 | NUR ---
PT WALKED A HALF LAP WITH WALKER. PT THEN RETURNED TO ROOM AND IS NOW SITTING UP IN CHAIR WITH CALL LIGHT IN REACH. PT DID NOT NEED ANYTHING ELSE A THE MOMENT
--- NOTE | 2017-12-01 17:44 | NUR ---
MED REC COMPLETE WITH VA REFILL HISTORY AND INTERVIEW WITH PATIENT'S DAUGHTER CAMILLA.
--- NOTE | 2017-12-01 18:34 | NUR ---
PT IS SITTING UP IN CHAIR WITH CALL LIGHT IN REACH AND VISITING WITH DAUGHTER. PT DID NOT NEED ANYTHING AT THE MOMENT
--- NOTE | 2017-12-01 19:30 | NUR ---
PATIENT UP IN RECLINER FOR ALL 3 MEALS AND HAS EATEN WELL. PATIENT HAD 200MLS LEFT ON HIS PO FLUID RESTRICTION FOR NIGHTSHIFT WHICH WAS PASSED ON IN REPORT. PATIENT BACK TO BED X2 DURING THE DAY AND DID NOT TOLERATE IT WELL IN THE MORNING AND HAD TO GET BACK UP, BUT WAS ABLE TO BYRON A NAP IN THE AFTERNOON. AM BLOOD SUGAR 141 COVED WITH 1 UNIT NOVOLOG. LUNCH BS WAS 188 COVERED WITH 3 UNITS NOVOLOG. DINNER BS 152 COVERED WITH 1 UNIT NOVOLOG. PATIENT DID NOT REQUIRE ANY PAIN MEDICATION TODAY. OT IN TODAY AND TAPED UP THE BACK OF BOTH THE PATIENT'S LOWER LEGS TO IMPROVE FLOW OF CIRCULATION AND FLUID TO THE LYMPH NODES. PATIENT'S LEGS ELEVATED IN RECLINER WHEN UP, WITH FOOT REST AND PILLOWS. PATIENT'S DAUGHTER HAS BEEN HER TWICE TODAY TAKING ACTIVE INTREST IN HER FATHERS CARE. PATIENT DECLINED A SHOWER THIS AM. DOPPLER NEEDED TO GET DP AND PT PULSES IN BOTH FEET TODAY. THIS IS UNCHANGED FROM PREVIOUS ASSESSMENT. PATIENT STARTED HAVVING AN UPSET STOMACH WITH SOME SLIGHT NAUSEA AFTER DINNER AND WAS GIVEN MAALOX AT 1817. THIS WAS UNCHANGED AT TIME OF REPORT AND PASSED ON TO GAUGE MACHINE OPERATOR. PATIENT HAS BEEN UP TO THE BR MULTIPLE TMES TODAY AND TOLERATES THIS WELL WITH 1PSBA AND WALKER.
--- NOTE | 2017-12-01 20:00 | NUR ---
RECEIVED REPORT A T 1900, FOUND PT SITTING IN CHAIR WATCHING TV WITH FAMILY AT BEDSIDE. PT HAD NO NEEDS OR CONCERNS AT THAT TIME.
--- NOTE | 2017-12-01 20:19 | NUR ---
VITALS DONE AND CHARTED. BEDSIDE TABLE AND CALL LIGHT WITHIN REACH.
--- NOTE | 2017-12-01 22:00 | NUR ---
V/S ARE WDL. PT CANNOT KEEP IN SITTING OR STANDING POSITION VERY LONG. BILATERAL LOWER LEGS HAVE EDEMA +3, THEY ARE VERY RED AND PAINFUL. PEDIS PULSES ARE AUDIBLE WITH DOPPLER ONLY. TOES AT THIS TIME ARE WARM TO TOUCH. ALL LOBES ARE CLEAR. ABD SOUNDS ARE PRESENT.
--- NOTE | 2017-12-01 22:28 | NUR ---
I&OS DONE AND CHARTED. WARM BLANKET GIVEN. BEDSIDE TABLE AND CALL LIGHT WITHING REACH.
--- NOTE | 2017-12-02 | NUR ---
VANCOMYCIN WAS STARTED AT 0000. PT IS STILL AWAKE IN CHAIR UNABLE TO SLEEP. NO NEW CONCERNS AT THIS TIME.
--- NOTE | 2017-12-02 02:09 | NUR ---
PT SO FAR HAS NOT BEEN ABLE TO SLEEP. PT WANTED TO GO FOR A STROLL IN THE WHEELCHAIR. WE DID SO. ALL LOBES ARE CLEAR. REDDNESS IN BOTH LOWER LEGS HAS SUBSIDED SOME WITH VANCOMYCIN. PT AT TIMES IS CONFUSED ABOUT PLACE. THIS MAY BE DUE TO TRAZADONE.
--- NOTE | 2017-12-02 03:08 | NUR ---
BG AT 0300 WAS 188. MD HUNG WAS CALLED. NO NEW ORDERS RECEIVED. PTPT IS BACK TO SLEEP.
--- NOTE | 2017-12-02 04:00 | NUR ---
PT ONLY SLEPT FOR ABOUT AN HOUR. PT AT THIS TIME IS AT RN STATION IN WHEELCHAIR. PT AT TIMES IS SOB. O2 SATS WERE 91-94%.
--- NOTE | 2017-12-02 05:19 | NUR ---
PT ONLY SLEPT FOR 1 HR THIS SHIFT. EDEMA ON BOTH LOWER LEGS IS +2 AND ALMOST +3. PEDIS PULSES ARE ONLY HEARD VIA DOPPLER. PT HAD LEGS ELEVATED FOR THE MOST PART OF THIS SHIFT. V/S ARE WDL. BG AT 2100 WAS 155, PT RECEIVED 1UNIT OF NOVOLOG INSULIN. PT AT TIMES HAS HAD SOB WITH ACTIVITY INTOLERANCE. O2 SATS ARE 91-94% RA. O2 FOR COMFORT WAS OFFERED BUT PT REFUSED. MD DELGADO WAS CALLED AT AROUND 0430 FOR FOR A PRN ALBUTEROL INH ORDER. SHE AGREED. ALL LOBES THIS SHIFT WERE CLEAR WITH THE BASES DIMINISHED. VANCOMYCIN WAS STARTED AT 0000 [place]ARP. AFTER VANCO WAS FINISHED, BOTH LOWER LEGS HAD A SIFNIFICANT DECREASE IN REDNESS. URINE OUTPUT IS ADEQUATE. NO NEW CONCERNS AT THIS TIME.
--- NOTE | 2017-12-02 07:40 | NUR ---
PATIENT UP IN THE RECLINER WHEN I GOT REPORT FROM ORACLE SOA ARCHITECT. PATIENT IS READY FOR BREAKFAST AND WANTS TO GO HOME TODAY. PATIENT VISITING WITH HIS DAUGHTER AT THIS TIME.
--- NOTE | 2017-12-02 10:10 | NUR ---
FINISHED SHOWERING PATIENT. BARRIER CREAM APPLIED TO SCROTUM AND INNER THIGHS. RX OINTMENT APPLIED TO BILAT LOWER LEGS. CLEAN UNDERWEAR AND SHORTS PUT ON PATIENT AND A CLEAN GOWN. PATIENT BACK SITTING UP IN THE RECLINER.
[2017-12-02] MEDS ORDERED: CLINDAMYCIN HC300 MG PO (11:31)
--- NOTE | 2017-12-02 11:32 | NUR ---
PATIENT HAS BEEN SEEN BY OT AND PT AT THIS POINT IN THE DAY AND IS NOW BACK FROM AMBULATING, IN HIS ROOM SITTING IN THE RECLINER AT THIS TIME. AWAITING LUNCH.
== END 2017-12-02 12:43 | disposition home or self-care (01) | DRG 602 ==
LOC: ED 16:01 → MS 19:31
PROVIDERS: ADMIT Internal Medicine
DX: L03.116 Cellulitis of left lower limb (principal); I50.23 Acute on chronic systolic (congestive) heart failure; L97.929 Non-pressure chronic ulcer of unspecified part of left lower leg with unspecified severity; L97.919 Non-pressure chronic ulcer of unspecified part of right lower leg with unspecified severity; N17.9 Acute kidney failure, unspecified; L03.115 Cellulitis of right lower limb; I35.0 Nonrheumatic aortic (valve) stenosis; I25.5 Ischemic cardiomyopathy; R53.81 Other malaise; E11.649 Type 2 diabetes mellitus with hypoglycemia without coma; I48.2 Chronic atrial fibrillation; G47.30 Sleep apnea, unspecified; Z87.891 Personal history of nicotine dependence; Z95.5 Presence of coronary angioplasty implant and graft; Z79.2 Long term (current) use of antibiotics; Z79.82 Long term (current) use of aspirin; Z79.4 Long term (current) use of insulin; Z79.51 Long term (current) use of inhaled steroids; Z79.899 Other long term (current) drug therapy
CPT/HCPCS: 36415; 71045; 80048; 80053; 80202; 82803; 83605; 83735; 83880; 84100; 84484; 85025; 85379; 87040; 93005; 93010; 94640; 97116; 97140; 97162; 97165; J0696; J1650; J3370; J7040; J7050